=== PATIENT | female | born 1975 | race Two or more races ===

== ENCOUNTER 2021-06-20 17:47 | Emergency (ER) | payer MEDICAID, OTHER ==
[~2021-06-20] VITALS: Ht 157.5 cm; Wt 79.4 kg
[2021-06-20 18:37] LABS: Urine Bacteria FEW /hpf (None Seen); Urine Blood Negative /uL (Negative); Urine Specific Gravity 1.025 (1.001-1.035); Urine WBC 5 /hpf (0 - 5)
[2021-06-20 22:30] VITALS: BP 107/58
== END 2021-06-20 23:06 | disposition left against medical advice (07) ==
LOC: ER 17:47
DX: R10.2 Pelvic and perineal pain (principal); Z53.21 Procedure and treatment not carried out due to patient leaving prior to being seen by health care provider
CPT/HCPCS: 81001

== ENCOUNTER → 2023-08-29 | Outpatient (CLI) | payer MEDICAID ==
[2023-08-29 09:43] LABS: Albumin 4.5 g/dL (3.2-4.8); Bilirubin, Direct 0.2 mg/dL (<0.3); Bilirubin, Total 0.7 mg/dL (0.2-1.0); Erythrocyte Sedimentation Rate 2 mm/hr (0-20); Total Protein 7.5 g/dL (5.7-8.2)
== END | disposition home or self-care (01) ==
LOC: LAB 08:39
PROVIDERS: ATTEND Internal Medicine
DX: M06.9 Rheumatoid arthritis, unspecified (principal)
CPT/HCPCS: 36415; 80076; 85652